=== PATIENT | male | born 1960 | race Caucasian/White ===

== ENCOUNTER 2017-03-03 09:01 | Emergency (ER) | payer OTHER ==
[~2017-03-03] VITALS: Ht 167.6 cm; Wt 55.9 kg
[2017-03-03 09:12] VITALS: TEMP 36.4
[2017-03-03] MEDS ORDERED: SODIUM CHLORIDE 0.9% 1000ML 1,000 ML IV STA ×2 (09:24→10:33)
[2017-03-03] MEDS ORDERED: OPTIRAY 320 IV PRN (09:30)
[2017-03-03] MEDS ORDERED: DIPHTHERIA/TETANUS/PERTUSSIS 0.5 ML SYR/VIAL IM. ONE (09:30)
[2017-03-03] MEDS ORDERED: HYDROmorphone INJ 0.5 MG/0.5 ML SYR IV STA (09:34)
[2017-03-03 09:39] LABS: ISTAT HEMOGLOBIN 15.6 g/dl (14.0-18.0); ISTAT IONIZED CALCIUM 1.09 mmol/l (1.12-1.32)
[2017-03-03 09:41] LABS: BASO % 0.1 %; BASO ABS # 0.02 K/uL (0-0.2); COMPLETE YES; HEMATOCRIT 43.6 % (42-52); IG% 0.3 %; LYMPH % 6.7 %; LYMPH ABS # 1.25 K/uL (1.2-3.4); MEAN CELL VOLUME 87.9 fL (80-100); MEAN CORPUSCULAR HEMOGLOBIN 31.5 pg (25-34); MEAN CORPUSCULAR HGB CONC 35.8 g/dl (32-36); MEAN PLATELET VOLUME 10.3 fL (7.4-10.4); MONO % 6.9 %; PLATELET COUNT 277 K/uL (130-400); RED BLOOD COUNT 4.96 M/uL (4.7-6.1); WHITE BLOOD COUNT 18.54 K/uL (4.8-10.8)
[2017-03-03 09:47] LABS: PARTIAL THROMBOPLASTIN RATIO 1.1; PROTHROMBIN TIME (PATIENT) 10.2 SECONDS (9.0-12.0)
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
[2017-03-03 10:09] LABS: BLOOD UREA NITROGEN 14 mg/dl (7-18); BUN/CREATININE RATIO 13.9 (10-20); CALCIUM 8.9 mg/dl (8.5-10.1); CARBON DIOXIDE 24 mmol/L (21-32); CHLORIDE 106 mmol/L (98-107); GLUCOSE 122 mg/dl (70-99); POTASSIUM 4.4 mmol/L (3.5-5.1); SODIUM 139 mmol/L (136-145)
[2017-03-03 10:28] LABS: ALKALINE PHOSPHATASE 76 U/L (45-117); ALT/SGPT 30 U/L (12-78); AST/SGOT 62 U/L (15-37)
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
[2017-03-03] MEDS ORDERED: HYDROmorphone INJ 1 MG/ML SYR IV STA ×2 (11:01→12:29)
[2017-03-03 11:12] VITALS: O2SAT 98; Ht 167.6 cm; Wt 55.9 kg
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
[2017-03-03] MEDS ORDERED: MULTI-VITAMIN INFUSION INJ 10 ML, THIAMINE HCL INJ 100 MG, FoLIC ACID INJ 1 MG in SODIU... IV ONE (13:00)
[2017-03-03 13:52] VITALS: BP 141/98; PULSE 85; O2SAT 96
== END 2017-03-03 13:54 | disposition short-term general hospital (02) ==
LOC: C.EDB 09:02 → C.EDA 13:54
DX: S09.90XA Unspecified injury of head, initial encounter (principal); S12.401A Unspecified nondisplaced fracture of fifth cervical vertebra, initial encounter for closed fracture; S12.501A Unspecified nondisplaced fracture of sixth cervical vertebra, initial encounter for closed fracture; T79.6XXA Traumatic ischemia of muscle, initial encounter; V27.0XXA Motorcycle driver injured in collision with fixed or stationary object in nontraffic accident, initial encounter; Y92.89 Other specified places as the place of occurrence of the external cause

== ENCOUNTER 2018-03-26 11:22 | Emergency (ER) | payer OTHER ==
[~2018-03-26] VITALS: Ht 165.1 cm; Wt 47.2 kg
[2018-03-26 11:26] VITALS: TEMP 37.3; Ht 165.1 cm; Wt 47.2 kg
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
[2018-03-26] MEDS ORDERED: ATOR-22 PO (12:54)
[2018-03-26] MEDS ORDERED: AZITTAB PO (12:54)
[2018-03-26] MEDS ORDERED: IPRA1AER2 INH (12:54)
[2018-03-26] MEDS ORDERED: PRLSR20 PO (12:54)
[2018-03-26] MEDS ORDERED: VNTHFA/IN INH (12:54)
[2018-03-26] MEDS ORDERED: DULO-24 PO (12:54)
[2018-03-26] MEDS ORDERED: DULO60CA44 PO (12:54)
[2018-03-26 12:56] LABS: BASO % 0.2 %; BASO ABS # 0.02 K/uL (0-0.2); EOS % 0.2 %; EOS ABS # 0.02 K/uL (0-0.5); HEMATOCRIT 46.8 % (42-52); HEMOGLOBIN 16.6 g/dL (14.0-18.0); IG# 0.04 K/uL (0.00-0.02); LYMPH % 7.4 %; LYMPH ABS # 0.93 K/uL (1.2-3.4); MEAN CELL VOLUME 87.8 fL (80-100); MEAN CORPUSCULAR HEMOGLOBIN 31.1 pg (25-34); MEAN CORPUSCULAR HGB CONC 35.5 g/dl (32-36); MEAN PLATELET VOLUME 9.6 fL (7.4-10.4); MONO % 7.4 %; MONO ABS # 0.93 K/uL (0.11-0.59); NEUT % 84.5 %; NEUT ABS # 10.65 K/uL (1.4-6.5); PLATELET COUNT 267 K/uL (130-400); RED CELL DISTRIBUTION WIDTH CV 14.3 % (11.5-14.5); WHITE BLOOD COUNT 12.59 K/uL (4.8-10.8)
[2018-03-26] MEDS ORDERED: GABA-1220 PO (13:11)
[2018-03-26 13:24] LABS: ALBUMIN 3.8 gm/dl (3.4-5.0); CALCIUM 8.7 mg/dl (8.5-10.1); CREATININE 1.16 mg/dl (0.60-1.40); POTASSIUM 3.9 mmol/L (3.5-5.1); TOTAL PROTEIN 7.6 gm/dl (6.4-8.2)
--- NOTE | 2018-03-26 19:05 | EMERGENCY ROOM VISIT NOTE ---
ED Visit Note First contact with patient: 17:56 The patient was taken in signout from Dr. Hyatt at the change of shift. Please see that note for details. The patient was pending psychiatric placement. He was assessed and was without complaints. Dinner was ordered. the patient was accepted at [facility] psychiatry. Secure transport via the [facility] was arranged.
[2018-03-26 21:15] VITALS: BP 114/77; PULSE 60; O2SAT 98
== END 2018-03-26 21:15 | disposition short-term general hospital (02) ==
LOC: C.EDB 11:23 → C.EDA 21:15
DX: F31.9 Bipolar disorder, unspecified (principal); F41.9 Anxiety disorder, unspecified; Z91.5 Personal history of self-harm; Z87.891 Personal history of nicotine dependence